=== PATIENT | female | born 1985 ===

== ENCOUNTER → 2017-08-01 | Outpatient (CLI) | payer BC ==
[~2017-08-01] MED LIST: ALBU90OI INH; AMOX500 PO; BCP'S; BCPs; BENTYL20 MG PO; CODGUAEL PO; CRUTCH4 USE; CYCL10 PO; DOXY100 PO; HYDACE5 PO; IBUP600 PO; IBUP800 PO; NAPR550 PO; Norco 5-325 Ta1 EACH PO; ONDA4 PO; OXYACE5T PO; PHENA100 PO; RXHYDACE PO; RXPROM25 PO; SULTRIDS PO; VALA500 PO; Zofran Odt4 MG SL; [UNRECOGNIZED DRUG - OTHER] PO
== END | disposition home or self-care (01) ==
LOC: PLD 12:14 → LAB SHORT 12:14
DX: D48.5 Neoplasm of uncertain behavior of skin (principal); D22.5 Melanocytic nevi of trunk
CPT/HCPCS: 88305

== ENCOUNTER 2018-01-04 09:26 | Emergency (ER) | payer BC ==
[~2018-01-04] VITALS: Ht 175.3 cm; Wt 63.5 kg
[2018-01-04 10:03] LABS: BASOPHILS ABSOLUTE AUTO 0.05 K/mm3 (0.00-0.23); BASOPHILS PERCENT AUTO 0 % (0-2); EOSINOPHILS ABSOLUTE AUTO 0.12 K/mm3 (0.00-0.68); EOSINOPHILS PERCENT AUTO 1 % (0-6); Hematocrit 40.7 % (33.0-51.0); Hemoglobin 13.8 g/dL (11.5-16.0); IMMATURE GRAN ABSOLUTE AUTO 0.05 K/mm3 (0.00-0.10); IMMATURE GRAN PERCENT AUTO 0 % (0-1); LYMPHOCYTES ABSOLUTE AUTO 2.24 K/mm3 (0.84-5.20); LYMPHOCYTES PERCENT AUTO 16 % (21-46); MONOCYTES ABSOLUTE AUTO 1.01 K/mm3 (0.16-1.47); MONOCYTES PERCENT AUTO 7 % (4-13); Mean Corpuscular HGB 29.9 pg (26.0-34.0); Mean Corpuscular HGB Conc 33.9 g/dL (31.5-36.5); Mean Corpuscular Volume 88 fL (80-100); NEUTROPHILS ABSOLUTE AUTO 10.65 K/mm3 (1.96-9.15); NEUTROPHILS PERCENT AUTO 75 % (41-73); Platelet Count 207 K/mm3 (150-400); RDW Coefficient Variation 12.4 % (11.7-14.2); RDW Standard Deviation 40.5 fL (35.1-46.3); Red Blood Cell Count 4.62 M/mm3 (3.80-5.20); White Blood Cell Count 14.12 K/mm3 (4.00-11.30)
[2018-01-04 10:20] LABS: Anion Gap 8 mmol/L (6-16); Blood Urea Nitrogen 8 mg/dL (8-24); Bun/Creatinine Ratio 11.5 (12.0-20.0); CO2, Blood 25 mmol/L (21-32); Calcium, Blood 8.8 mg/dL (8.5-10.1); Chloride, Blood 107 mmol/L (98-108); Glomerular Filtration Rate >60 (60-); Glucose, Blood 72 mg/dL (70-99); Potassium, Blood 3.9 mmol/L (3.5-5.5); Sodium, Blood 140 mmol/L (136-145)
[2018-01-04] MEDS ORDERED: NAPR550 PO (11:09)
== END 2018-01-04 11:40 | disposition home or self-care (01) ==
LOC: ER 09:26
PROVIDERS: Emergency Medicine
DX: R09.1 Pleurisy (principal); F17.210 Nicotine dependence, cigarettes, uncomplicated
CPT/HCPCS: 36415; 71046; 80048; 81000; 81025; 85025; 85379; 93005; 93010; 96374; 99283; J1885

== ENCOUNTER 2019-07-12 13:08 | Emergency (ER) | payer OTHER ==
[~2019-07-12] VITALS: Ht 175.3 cm; Wt 68.0 kg
[2019-07-12 14:48] LABS: Influenza A Negative (NEGATIVE); Influenza B Negative (NEGATIVE)
== END 2019-07-12 14:54 | disposition home or self-care (01) ==
LOC: ER 13:08
PROVIDERS: Physician Assistant
DX: J06.9 Acute upper respiratory infection, unspecified (principal); F17.200 Nicotine dependence, unspecified, uncomplicated
CPT/HCPCS: 87804; 99283

== ENCOUNTER 2020-09-19 11:14 | Emergency (ER) | payer OTHER ==
[~2020-09-19] VITALS: Ht 175.3 cm; Wt 67.1 kg
[2020-09-19 12:23] LABS: BASOPHILS ABSOLUTE AUTO 0.06 K/mm3 (0.00-0.23); BASOPHILS PERCENT AUTO 0 % (0-2); EOSINOPHILS ABSOLUTE AUTO 0.11 K/mm3 (0.00-0.68); EOSINOPHILS PERCENT AUTO 1 % (0-6); Hematocrit 45.9 % (33.0-51.0); IMMATURE GRAN ABSOLUTE AUTO 0.07 K/mm3 (0.00-0.10); IMMATURE GRAN PERCENT AUTO 0 % (0-1); LYMPHOCYTES ABSOLUTE AUTO 1.99 K/mm3 (0.84-5.20); LYMPHOCYTES PERCENT AUTO 12 % (21-46); MONOCYTES ABSOLUTE AUTO 0.82 K/mm3 (0.16-1.47); MONOCYTES PERCENT AUTO 5 % (4-13); Mean Corpuscular HGB 29.6 pg (26.0-34.0); Mean Corpuscular HGB Conc 32.7 g/dL (31.5-36.5); Mean Corpuscular Volume 91 fL (80-100); Mean Platelet Volume 11.1 fL (9.1-12.4); NEUTROPHILS ABSOLUTE AUTO 13.89 K/mm3 (1.96-9.15); NEUTROPHILS PERCENT AUTO 82 % (41-73); Platelet Count 261 K/mm3 (150-400); RDW Coefficient Variation 13.4 % (11.7-14.2); RDW Standard Deviation 44.3 fL (35.1-46.3); Red Blood Cell Count 5.06 M/mm3 (3.80-5.20); White Blood Cell Count 16.94 K/mm3 (4.00-11.30)
[2020-09-19 12:32] LABS: Alanine Aminotransfer (ALT/SGP 21 U/L (12-78); Albumin, Blood 4.4 g/dL (3.4-5.0); Albumin/Globulin Ratio 1.3 (0.8-1.8); Alk Phos 51 U/L (50-136); Anion Gap 10 mmol/L (6-16); Aspartate Aminotrans (AST/SGOT 16 U/L (12-37); Bilirubin, Total 0.6 mg/dL (0.1-1.0); Blood Urea Nitrogen 9 mg/dL (8-24); Bun/Creatinine Ratio 14.8 (12.0-20.0); CO2, Blood 21 mmol/L (21-32); Calcium, Blood 8.9 mg/dL (8.5-10.1); Chloride, Blood 111 mmol/L (98-108); Creatinine, Blood 0.61 mg/dL (0.40-1.00); Globulin, Blood 3.3 g/dL (2.2-4.0); Glomerular Filtration Rate >60 (60-); Glucose, Blood 58 mg/dL (70-99); Potassium, Blood 4.1 mmol/L (3.5-5.5); Sodium, Blood 142 mmol/L (136-145); Total Protein, Blood 7.7 g/dL (6.4-8.2); Troponin I <0.015 ng/mL (0.000-0.040)
[2020-09-19] MEDS ORDERED: Indomethacin50 MG PO (13:05)
== END 2020-09-19 13:36 | disposition home or self-care (01) ==
LOC: ER 11:14
PROVIDERS: Emergency Medicine
DX: R09.1 Pleurisy (principal); F17.200 Nicotine dependence, unspecified, uncomplicated
CPT/HCPCS: 36415; 71046; 80053; 83690; 83880; 84484; 85025; 93005; 93010; 96374; 96375; 99284-25; J1885; J2405

== ENCOUNTER 2022-02-02 14:08 | Emergency (ER) | payer OTHER ==
[~2022-02-02] VITALS: Ht 175.3 cm; Wt 66.7 kg
[~2022-02-02 14:08] MED LIST changes: +Indomethacin50 MG PO
[2022-02-02] MEDS ORDERED: Ativan1 MG PO (16:09)
== END 2022-02-02 16:14 | disposition home or self-care (01) ==
LOC: ER 14:08
DX: F41.0 Panic disorder [episodic paroxysmal anxiety] (principal); F17.210 Nicotine dependence, cigarettes, uncomplicated
CPT/HCPCS: 99283; A9270

== ENCOUNTER → 2024-05-29 | Outpatient (CLI) | payer OTHER ==
[~2024-05-29] MED LIST changes: +Ativan1 MG PO
[2024-05-29 08:35] LABS: BASOPHILS ABSOLUTE AUTO 0.06 K/mm3 (0.00-0.23); BASOPHILS PERCENT AUTO 0 % (0-2); EOSINOPHILS ABSOLUTE AUTO 0.29 K/mm3 (0.00-0.68); EOSINOPHILS PERCENT AUTO 2 % (0-6); Hematocrit 36.7 % (33.0-51.0); Hemoglobin 12.6 g/dL (11.5-16.0); IMMATURE GRAN ABSOLUTE AUTO 0.15 K/mm3 (0.00-0.10); IMMATURE GRAN PERCENT AUTO 1 % (0-1); LYMPHOCYTES ABSOLUTE AUTO 3.12 K/mm3 (0.84-5.20); LYMPHOCYTES PERCENT AUTO 18 % (21-46); MONOCYTES ABSOLUTE AUTO 0.88 K/mm3 (0.16-1.47); MONOCYTES PERCENT AUTO 5 % (4-13); Mean Corpuscular HGB 30.4 pg (26.0-34.0); Mean Corpuscular HGB Conc 34.3 g/dL (31.5-36.5); Mean Corpuscular Volume 88 fL (80-100); Mean Platelet Volume 10.4 fL (9.1-12.4); NEUTROPHILS PERCENT AUTO 74 % (41-73); Platelet Count 263 K/mm3 (150-400); RDW Coefficient Variation 13.2 % (11.7-14.2); RDW Standard Deviation 42.7 fL (35.1-46.3); Red Blood Cell Count 4.15 M/mm3 (3.80-5.20)
[2024-05-29 08:44] LABS: Albumin, Blood 3.2 g/dL (3.4-5.0); Albumin/Globulin Ratio 0.8 (0.8-1.8); Bilirubin, Total 0.3 mg/dL (0.1-1.0); Bun/Creatinine Ratio 14.5 (12.0-20.0); Calcium, Blood 8.9 mg/dL (8.5-10.1); Creatinine, Blood 0.62 mg/dL (0.40-1.00); Globulin, Blood 4.1 g/dL (2.2-4.0); Potassium, Blood 4.7 mmol/L (3.5-5.5); Total Protein, Blood 7.3 g/dL (6.4-8.2)
== END ==
LOC: LAB 08:30 → LAB SHORT 08:30
PROVIDERS: Chiropractor
DX: G43.109 Migraine with aura, not intractable, without status migrainosus (principal)
CPT/HCPCS: 80053; 85025

== ENCOUNTER 2024-09-24 06:58 | Inpatient (IN) | payer OTHER ==
[~2024-09-24] VITALS: Ht 175.3 cm; Wt 98.0 kg
[2024-09-24] VITALS (20 sets, daily range): BP systolic 116–175; BP diastolic 57–97
[2024-09-24] MEDS ORDERED: Lactated Ringer's 1,000 ML IV ONE (07:36)
[2024-09-24] MEDS ORDERED: CeFAZolin Sodium 2,000 MG in NS 100 ML IV SCH ×2 (07:50→14:30)
[2024-09-24] MEDS ORDERED: Lactated Ringer's 1,000 ML IV SCH ×2 (07:50→10:05)
[2024-09-24 08:04] LABS: BASOPHILS ABSOLUTE AUTO 0.08 K/mm3 (0.00-0.23); BASOPHILS PERCENT AUTO 0 % (0-2); EOSINOPHILS ABSOLUTE AUTO 0.14 K/mm3 (0.00-0.68); EOSINOPHILS PERCENT AUTO 1 % (0-6); Hemoglobin 12.9 g/dL (11.5-16.0); IMMATURE GRAN ABSOLUTE AUTO 0.21 K/mm3 (0.00-0.10); IMMATURE GRAN PERCENT AUTO 1 % (0-1); LYMPHOCYTES ABSOLUTE AUTO 3.02 K/mm3 (0.84-5.20); LYMPHOCYTES PERCENT AUTO 14 % (21-46); MONOCYTES ABSOLUTE AUTO 1.33 K/mm3 (0.16-1.47); MONOCYTES PERCENT AUTO 6 % (4-13); Mean Corpuscular HGB 28.9 pg (26.0-34.0); Mean Corpuscular HGB Conc 34.9 g/dL (31.5-36.5); Mean Corpuscular Volume 83 fL (80-100); NEUTROPHILS ABSOLUTE AUTO 17.02 K/mm3 (1.96-9.15); NEUTROPHILS PERCENT AUTO 78 % (41-73); Platelet Count 361 K/mm3 (150-400); RDW Coefficient Variation 13.9 % (11.7-14.2); RDW Standard Deviation 41.8 fL (35.1-46.3); Red Blood Cell Count 4.46 M/mm3 (3.80-5.20)
[2024-09-24] MEDS ORDERED: Phenylephrine HCl 100 MCG/ML-NS 10MLSYR (1MG/10ML) ONE (08:11)
[2024-09-24] MEDS ORDERED: Ondansetron HCl 2 MG / ML 2ML Vial ONE (08:11)
[2024-09-24] MEDS ORDERED: Oxytocin 10 Unit / ML Vial ONE (08:12)
[2024-09-24] MEDS ORDERED: Ketorolac Tromethamine 30mg Vial ONE (08:12)
[2024-09-24] MEDS ORDERED: Dexamethasone Sod Phos 10 MG/ML 1ML VIAL ONE (08:12)
[2024-09-24] MEDS ORDERED: DiphenhydrAMINE HCl 50 MG/ML 1ML Vial ONE (08:12)
[2024-09-24] MEDS ORDERED: FentaNYL Citrate 50 MCG/ML 2 ML Injection ONE (08:13)
[2024-09-24] MEDS ORDERED: ePHEDrine Sulfate 50 MG/ML 1ML Injection ONE (08:13)
[2024-09-24] MEDS ORDERED: Citric Acid/Sodium Citrate 30 ML BTL PO ONE (08:20)
[2024-09-24] MEDS ORDERED: Metoclopramide HCl 5MG / ML 2ML Vial IV ONE (08:20)
[2024-09-24 09:17] LABS: PCO2 Cord - Venous 41.9 mmHg (40-50); PO2 Cord - Venous 19.8 mmHg (28-32); pH Umbilical Cord - Venous 7.35 (7.26-7.35)
[2024-09-24 09:18] LABS: PCO2 Cord - Arterial 50.2 mmHg (40-50); PO2 Cord - Arterial < 14.0 mmHg (16-20)
[2024-09-24] MEDS ORDERED: FentaNYL Citrate 50 MCG/ML 2 ML Injection IV PRN (09:25)
[2024-09-24] MEDS ORDERED: HYDROmorphone HCl 0.5 MG/0.5 ML SYR IV PRN (09:25)
[2024-09-24] MEDS ORDERED: Ondansetron HCl 2 MG / ML 2ML Vial IV PRN ×2 (09:25→10:10)
[2024-09-24] MEDS ORDERED: Promethazine HCl 25 MG Supp PR PRN (10:00)
[2024-09-24] MEDS ORDERED: Magnesium Hydroxide Conc 10 ML UDC PO PRN (10:05)
[2024-09-24] MEDS ORDERED: Methylergonovine Maleate 0.2MG / ML 1ML Amp IM PRN (10:05)
[2024-09-24] MEDS ORDERED: Misoprostol 200 MCG Tab PR PRN (10:05)
[2024-09-24] MEDS ORDERED: Lanolin Cream TOP PRN (10:05)
[2024-09-24] MEDS ORDERED: Promethazine HCl 25 MG Tab PO PRN (10:05)
[2024-09-24] MEDS ORDERED: OXYTOCIN/RINGER'S LACTATE 500 ML IV SCH (10:10)
[2024-09-24] MEDS ORDERED: Promethazine HCl 12.5 MG Supp PR PRN (10:10)
[2024-09-24] MEDS ORDERED: Morphine Sulfate 4 MG/1 ML Injection IV PRN (10:10)
[2024-09-24] MEDS ORDERED: Simethicone 80 MG Chew PO PRN (10:10)
[2024-09-24] MEDS ORDERED: OxyCODONE 5 mg/Acetamin 325 mg TABLET PO PRN (10:10)
[2024-09-24] MEDS ORDERED: Acetaminophen 500 MG Tab PO PRN (10:10)
[2024-09-24] MEDS ORDERED: Ketorolac Tromethamine 30mg Vial IV SCH (11:00)
--- NOTE | 2024-09-24 11:30 | NUR ---
1127, PT STATES THAT SHE WAS ACTIVELY FILLING OUT BIRTHCERTIFICATE PAPERWORK DURING BP MEASUREMENT
--- NOTE | 2024-09-24 12:13 | NUR ---
PT TO NURSERY VIA WHEELCHAIR TO VISIT NB
--- NOTE | 2024-09-24 14:40 | NUR ---
EDUCATED ON PUMPING BREASTS AND SHOWN HOW TO WORK BREASTPUMP, PT CURRENTLY PUMPING BREASTS.
--- NOTE | 2024-09-24 15:22 | NUR ---
REPORT GIVEN TO KB Barros RN
[2024-09-24] MEDS ORDERED: Ibuprofen 400 MG Tab PO SCH (16:00)
--- NOTE | 2024-09-24 17:13 | NUR ---
AMBULATED WELL IN HALLS. PAIN WELL CONTROLLED WITH MEDS. ALEX GRAY. PT UNDECIDED IF SHE WILL GO HOME TONIGHT OR FIRST THING IN AM.
[2024-09-24] MEDS ORDERED: Docusate Sodium 100 MG Cap PO SCH (21:00)
[2024-09-24] MEDS ORDERED: OxyCODONE HCL 5 MG TAB PO PRN (23:00)
[2024-09-25 04:46] VITALS: BP 137/82
[2024-09-25 06:21] LABS: BASOPHILS ABSOLUTE AUTO 0.05 K/mm3 (0.00-0.23); BASOPHILS PERCENT AUTO 0 % (0-2); EOSINOPHILS ABSOLUTE AUTO 0.12 K/mm3 (0.00-0.68); EOSINOPHILS PERCENT AUTO 1 % (0-6); Hematocrit 30.8 % (33.0-51.0); Hemoglobin 10.7 g/dL (11.5-16.0); IMMATURE GRAN ABSOLUTE AUTO 0.14 K/mm3 (0.00-0.10); IMMATURE GRAN PERCENT AUTO 1 % (0-1); LYMPHOCYTES ABSOLUTE AUTO 3.58 K/mm3 (0.84-5.20); LYMPHOCYTES PERCENT AUTO 15 % (21-46); MONOCYTES ABSOLUTE AUTO 1.66 K/mm3 (0.16-1.47); MONOCYTES PERCENT AUTO 7 % (4-13); Mean Corpuscular HGB 29.6 pg (26.0-34.0); Mean Corpuscular HGB Conc 34.7 g/dL (31.5-36.5); Mean Corpuscular Volume 85 fL (80-100); Mean Platelet Volume 10.4 fL (9.1-12.4); NEUTROPHILS ABSOLUTE AUTO 19.03 K/mm3 (1.96-9.15); NEUTROPHILS PERCENT AUTO 77 % (41-73); Platelet Count 266 K/mm3 (150-400); RDW Standard Deviation 43.3 fL (35.1-46.3); Red Blood Cell Count 3.62 M/mm3 (3.80-5.20); White Blood Cell Count 24.58 K/mm3 (4.00-11.30)
[2024-09-25 08:28] VITALS: BP 132/69
[2024-09-25] MEDS ORDERED: Prenatal Vit/FE Fumarate/FA 1 Tab PO SCH (09:00)
[2024-09-25] MEDS ORDERED: Percocet 5-3251 EACH PO (10:36)
[2024-09-25] MEDS ORDERED: IBUP800 PO (10:37)
[2024-09-25] MEDS ORDERED: DOCU100 PO (10:37)
--- NOTE | 2024-09-25 11:02 | NUR ---
09/25/24 1055 Pt given DC instructions from previous RN, has no new questions. Printed instructions given with PRN meds and times noted. PT plans to go home and retrieve her personal items then head to [facility] to be with her baby. Per Dr Jiang, pt does not need to pass flatus before being discharged home
== END 2024-09-25 10:30 | disposition home or self-care (01) | DRG 785 ==
LOC: OBS 06:58 → BC 07:06 → OBS 07:46 → BC 07:47
PROVIDERS: ADMIT Obstetrics & Gynecology
PROC: 0UT70ZZ Resection of Bilateral Fallopian Tubes, Open Approach (ICD-10-PCS; 2024-09-24)
PROC: 10D00Z1 Extraction of Products of Conception, Low, Open Approach (ICD-10-PCS; principal; 2024-09-24 08:30)
DX: O35.9XX0 Maternal care for (suspected) fetal abnormality and damage, unspecified, not applicable or unspecified (principal); Z3A.38 38 weeks gestation of pregnancy; Z37.0 Single live birth; Z30.2 Encounter for sterilization; O77.0 Labor and delivery complicated by meconium in amniotic fluid
CPT/HCPCS: 36415; 82803; 85025; 86850; 86900; 86901; 88302; A9270; J0690; J1100; J1200; J1885; J2270; J2371; J2405; J2590; J2765; J3010; J7120

== ENCOUNTER → 2025-04-25 | Outpatient (CLI) | payer OTHER ==
[~2025-04-25] MED LIST changes: +DOCU100 PO; +Percocet 5-3251 EACH PO
[2025-04-25 15:59] LABS: Thyroid Stimulating Hormone 1.08 uIU/mL (0.360-4.800)
== END ==
LOC: LAB SHORT 12:53 → LAB 12:53
PROVIDERS: General Practice
DX: N92.1 Excessive and frequent menstruation with irregular cycle (principal)
CPT/HCPCS: 82306; 84439; 84443; 84481